=== PATIENT | male | born 1985 | race Caucasian/White ===

== ENCOUNTER 2017-01-16 15:23 | Emergency (ER) | payer BC | END 2017-01-16 18:30 | disposition home or self-care (01) | LOC: ER 15:23 | DX: S09.90XA Unspecified injury of head, initial encounter (principal); S16.1XXA Strain of muscle, fascia and tendon at neck level, initial encounter; G47.30 Sleep apnea, unspecified; V49.9XXA Car occupant (driver) (passenger) injured in unspecified traffic accident, initial encounter | CPT/HCPCS: 70450; 72125; 99284; A9270-GY ==